=== PATIENT | male | born 1955 | race American Indian/Alaskan Native ===

== ENCOUNTER 2017-08-16 12:08 | Day surgery (SDC) | payer BC ==
[~2017-08-16 12:08] MED LIST: ANCEF/STERILE WATER 2 GM/20 ML 2 GM/20 ML SYRINGE IV NR; MARCAINE 0.25% INFILTRATI ONE; NEOSPORIN GU IR ONE
--- NOTE | 2017-08-16 13:13 | Anesthesia Consultation ---
Anesthesia Consult and Med Hx Date of service: 08/16/17 - Airway Anesthetic Teeth Evaluation: Good ROM Head & Neck: Adequate Mental/Hyoid Distance: Adequate Mallampati Class: Class II Intubation Access Assessment: Probably Good - Pulmonary Exam CTA: Yes - Cardiac Exam Cardiac Exam: RRR - Pre-Operative Health Status ASA Pre-Surgery Classification: ASA2 Proposed Anesthetic Plan: General - Pulmonary Hx Smoking: Yes (2 cigarettes PER DAY for 40 years) Hx Asthma: No Hx Sleep Apnea: No (MILTON PRE SCREEN HIGH RISK) - Cardiovascular System Hx Hypertension: Yes (X 2 MONTHS) Hx Heart Attack/AMI: No - Central Nervous System CVA: No Hx Back Pain: Yes - Gastrointestinal Hx Gastroesophageal Reflux Disease: No - Endocrine Hx Renal Disease: No Hx Liver Disease: No Hx Non-Insulin Dependent Diabetes: No - Other Systems Hx Alcohol Use: Yes (2-3 DRINKS PER DAY) Hx Cancer: No (elevated PSA) - Additional Comments Anesthesia Medical History Comments: NAC
--- NOTE | 2017-08-16 13:14 | Anesthesia Day of Surgery ---
Anesthesia Day of Surgery - Day of Surgery Patient Examined: Yes Patient H&P Reviewed: Yes Patient is NPO: Yes
[2017-08-16] MEDS ORDERED: PEPCID PO NR (14:00)
[2017-08-16] MEDS ORDERED: VERSED IV NR (14:00)
[2017-08-16] MEDS ORDERED: LACTATED RINGERS 1,000 ML IV SCH (14:00)
[2017-08-16] MEDS ORDERED: DIPRIVAN 10 MG/ML IV ONE (14:11)
[2017-08-16] MEDS ORDERED: DILAUDID ONE (14:12)
[2017-08-16] MEDS ORDERED: MARCAINE 0.25% INFILTRATI ONE (14:16)
[2017-08-16] MEDS ORDERED: NEOSPORIN GU IR ONE (14:16)
[2017-08-16] MEDS ORDERED: ZOFRAN IV PRN (14:30)
[2017-08-16] MEDS ORDERED: ANCEF/STERILE WATER 2 GM/20 ML 2 GM/20 ML SYRINGE IV NR (14:30)
[2017-08-16] MEDS ORDERED: XYLOCAINE MPF 2% ONE ×2 (14:46→16:13)
[2017-08-16] MEDS ORDERED: ZEMURON IV ONE (14:46)
[2017-08-16] MEDS ORDERED: DECADRON ONE (14:46)
[2017-08-16] MEDS ORDERED: NEO SYNEPHRINE/NS Syringe(OR USE) IV ONE (14:49)
[2017-08-16] MEDS ORDERED: PERCOCET 5/325 PO PRN (15:00)
[2017-08-16] MEDS ORDERED: ZOFRAN ONE (15:43)
[2017-08-16] MEDS ORDERED: TORADOL ONE (15:43)
[2017-08-16] MEDS ORDERED: LACTATED RINGERS 1,000 ML ONE (15:44)
[2017-08-16] MEDS ORDERED: NEOSTIGMINE ONE (16:06)
[2017-08-16] MEDS ORDERED: ROBINUL ONE (16:06)
--- NOTE | 2017-08-16 16:18 | Post Operative Note ---
Date of procedure: 08/16/17 Pre-op diagnosis: l eft inguinal Post-op diagnosis: same Findings: large direct IH Procedure: LIH Anesthesia: GETA Surgeon: JM ANDRE Estimated blood loss: minimal Pathology: none Condition: stable Disposition: PACU
--- NOTE | 2017-08-16 16:21 | Discharge Summary ---
Short Stay Discharge Plan Activity: other (no straining ) Weight Bearing Status: Full Weight Bearing Diet: low cholesterol Wound: other (ice to wound ) Follow up with: ANDREW HUITRON MD [Primary Care Provider] - 7 Days JM ANDRE MD [Staff Physician] - 10 Days
[2017-08-16] MEDS: MORPHINE IV PRN ×2 (17:00→17:10)
--- NOTE | 2017-08-16 18:31 | Operative Report ---
PREOPERATIVE DIAGNOSIS: Very large progressing painful left inguinal hernia. POSTOPERATIVE DIAGNOSES: 1. Very large progressing painful left inguinal hernia. 2. Large direct inguinal hernia with a large defect. PROCEDURE: Left inguinal hernia repair. SURGEON: Benoit Mullen MD ANESTHESIA: General. FINDINGS: This is a gentleman with large defect that is protruding causing pain and getting larger, now presents for repair. All risks and complications were discussed. DESCRIPTION OF PROCEDURE: The patient brought to the operating room and placed on the operating table. Following induction of anesthesia, placed in the supine position, prepped and draped in the usual sterile fashion. An oblique incision made over the left inguinal area and carried through the skin and superficial fascia. Small vessels were tied with Vicryl or cauterized. This was carried down to the external oblique aponeurosis. The external ring was opened and there was a large bulge protruding from it with very thinning of the external oblique aponeurosis. The cord was isolated from the bulge and this was a large direct hernia through the floor, which was totally weak. This was dissected free and circumferentially off the cord. The ilioinguinal nerve was reflected as part of the cord and isolated with the cord using a Katlyn. At this point, hemostasis was excellent. Circumferential sutures were initially placed after we placed the plug in the defect. The plug was secured, so it would not move. We did not open the sack. The wound was irrigated. The circumferential defect was approximated with a keyhole mesh, interrupted sutures of 2-0 Ethibond. Wound was copiously irrigated throughout the case with antibiotic solution. Superficial fascia was closed after the external oblique aponeurosis was closed with 2-0 Vicryl. The fascia was closed with 3-0 Vicryl, skin with clips. The patient tolerated the procedure well and brought to recovery in stable condition. Minimal blood loss. JOB# [id number] AMY/GEOFF
--- NOTE | 2017-08-16 18:37 | Post Anesthesia Evaluation ---
- Post Anesthesia Evaluation Patient Participated: Yes Airway Patent: Yes Stable Respiratory Function: Yes Temp > 96.8F: Yes Pain Manageable: Yes Adequeate Hydration: Yes Anesthesia Complications: No
[2017-08-16 19:05] VITALS: BP 159/90
== END 2017-08-16 18:45 | disposition home or self-care (01) ==
LOC: OR 12:08
PROVIDERS: ATTEND Urology
DX: K40.90 Unilateral inguinal hernia, without obstruction or gangrene, not specified as recurrent (principal); I10 Essential (primary) hypertension; E78.00 Pure hypercholesterolemia, unspecified; F17.210 Nicotine dependence, cigarettes, uncomplicated; Z79.899 Other long term (current) drug therapy
CPT/HCPCS: 36415; 49505; 84132; C1781; J0690; J1100; J1170; J1885; J2250; J2270; J2370; J2405; J2704; J2710; J7120

== ENCOUNTER 2018-12-05 11:26 | Day surgery (SDC) | payer BC ==
[2018-12-05] MEDS ORDERED: GENTAMICIN 80 MG in NACL 0.9% 100 ML IV SCH (12:18)
[2018-12-05] MEDS ORDERED: GENTAMICIN 400 MG in NACL 0.9% 100 ML IV NR (12:30)
[2018-12-05] MEDS ORDERED: NS IV ONE (12:33)
[2018-12-05] MEDS ORDERED: GENTAMICIN IV ONE (12:33)
[2018-12-05] MEDS ORDERED: NACL 0.9% 1000 ML 1,000 ML IV SCH (13:00)
[2018-12-05] MEDS ORDERED: ANCEF/STERILE WATER 2 GM/20 ML IV NR (13:00)
--- NOTE | 2018-12-05 13:05 | Anesthesia Day of Surgery ---
Anesthesia Day of Surgery - Day of Surgery Patient Examined: Yes Patient H&P Reviewed: Yes Patient is NPO: Yes
--- NOTE | 2018-12-05 13:05 | Anesthesia Consultation ---
Anesthesia Consult and Med Hx Date of service: 12/05/18 - Airway Anesthetic Teeth Evaluation: Good ROM Head & Neck: Adequate Mental/Hyoid Distance: Adequate Mallampati Class: Class II Intubation Access Assessment: Good - Pulmonary Exam CTA: Yes - Cardiac Exam Cardiac Exam: No Murmur - Pre-Operative Health Status ASA Pre-Surgery Classification: ASA2 Proposed Anesthetic Plan: General - Pulmonary Hx Smoking: Yes (2 cigarettes PER DAY for 40 years) Hx Asthma: No Hx Sleep Apnea: No (MILTON PRE SCREEN HIGH RISK) - Cardiovascular System Hx Hypertension: Yes (X 1 YR) Hx Heart Attack/AMI: No - Central Nervous System CVA: No Hx Back Pain: Yes - Gastrointestinal Hx Gastroesophageal Reflux Disease: No - Endocrine Hx Renal Disease: No Hx Liver Disease: No Hx Non-Insulin Dependent Diabetes: No - Other Systems Hx Alcohol Use: Yes (2-3 DRINKS PER DAY) Hx Cancer: No
[2018-12-05] MEDS ORDERED: DIPRIVAN 10 MG/ML IV ONE (13:27)
[2018-12-05] MEDS ORDERED: DILAUDID ONE (13:27)
[2018-12-05] MEDS ORDERED: XYLOCAINE MPF 2% ONE (13:29)
[2018-12-05] MEDS ORDERED: GENTAMICIN/NS 80 MG/100 ML 100 ML IV NR (13:30)
[2018-12-05] MEDS ORDERED: GENTAMICIN ONE (13:59)
[2018-12-05] MEDS ORDERED: VERSED IV NR (14:00)
[2018-12-05] MEDS ORDERED: PEPCID PO NR (14:00)
[2018-12-05] MEDS ORDERED: WATER FOR IRRIG STERILE IR ONE (14:33)
[2018-12-05] MEDS ORDERED: NACL 0.9% 100 ML ONE (14:35)
[2018-12-05 15:02] VITALS: BP 145/65
--- NOTE | 2018-12-05 16:20 | Post Operative Note ---
Date of procedure: 12/05/18 Pre-op diagnosis: inc psa Post-op diagnosis: same Procedure: pus bx cysto Anesthesia: GETA Estimated blood loss: minimal Pathology: list (prostate) Specimen disposition: to lab Condition: stable Disposition: PACU
--- NOTE | 2018-12-05 16:21 | Discharge Summary ---
Short Stay Discharge Plan Activity: other (no straining ) Weight Bearing Status: Full Weight Bearing Diet: low fat, low cholesterol, low salt Special Instructions: other (inc fluids ) Additional Instructions: INCREASE ORAL FLUIDS. AVOID STRAINING. CALL FOR F/U APPT. NOTHING PER RECTUM. Follow up with: ANDREW HUITRON MD [Primary Care Provider] - 7 Days JM ANDRE MD [Staff Physician] - 7 Days Forms: [facility]
--- NOTE | 2018-12-05 16:46 | Operative Report ---
PREOPERATIVE DIAGNOSIS: Increased PSA, suspicious areas ____. POSTOPERATIVE DIAGNOSES: Increased PSA suspicious areas ____. PROCEDURE: Flexible cystoscopy, prostate ultrasound-guided biopsies. SURGEON: Benoit Mullen MD ANESTHESIA: General. FINDINGS: This is a gentleman who has abnormal areas with increased risk and the prostate now presents for repeat prostate biopsy under anesthesia. DESCRIPTION OF PROCEDURE: The patient brought to the operating room and placed on the operating table. Following induction of anesthesia, he was medicated with Ancef and gentamicin, prepped and draped in usual sterile fashion. Flexible cystoscopy showed an open bladder neck. No significant trabeculation. The ultrasound unit was placed. The gland measured about 41 grams. 6 biopsies on the right, 6 on the left were carried out. The patient tolerated the procedure well. No significant complication. He was brought to recovery in stable condition. JOB# [id number] AMY/GEOFF
--- NOTE | 2018-12-06 11:12 | Ultrasound Report ---
ULTRASOUND TRANSRECTAL History: Elevated PSA. Findings: The prostate gland measures 5.6 x 2.9 x 4.9 cm. Prostate volume is estimated at 41.2 cc. The prostate gland appears homogeneous on transrectal ultrasound. No discrete nodule is demonstrated. Impression: Prostate volume measures 41.2 cc.
== END 2018-12-05 16:10 | disposition home or self-care (01) ==
LOC: OR 11:26
PROVIDERS: ATTEND Urology
DX: C61 Malignant neoplasm of prostate (principal); F17.210 Nicotine dependence, cigarettes, uncomplicated; E78.00 Pure hypercholesterolemia, unspecified; I10 Essential (primary) hypertension; Z72.89 Other problems related to lifestyle; Z79.899 Other long term (current) drug therapy; Z98.890 Other specified postprocedural states
CPT/HCPCS: 55700; 76872; 88305; 88344; A4217; J0690; J1170; J1580; J2250; J2704; J7030; 88342

== ENCOUNTER 2018-12-21 08:33 | Outpatient (CLI) | payer BC ==
--- NOTE | 2018-12-21 15:44 | Cat Scan Report ---
CT ABDOMEN AND PELVIS WITHOUT CONTRAST INDICATION: Malignant neoplasm of prostate. COMPARISON: None similar. FINDINGS: Abdomen and pelvis CT performed following oral contrast only. LUNG BASES: Coronary calcifications. Slight nonspecific distal esophageal prominence. Left hemidiaphragm minimally higher than the right. ABDOMEN: Please note that sensitivity to detect small visceral lesions is limited due to the absence of intravenous contrast. An indeterminate 0.7 cm left hepatic hypodensity, axial series 2, image 46. Otherwise grossly unremarkable unenhanced liver, spleen, somewhat contracted gallbladder, adrenals, aorta, IVC and kidneys. Pancreas also grossly unremarkable with a small 4 mm benign-appearing pancreatic head calcification on axial image 86. Few small, predominantly subcentimeter mesenteric and retroperitoneal lymph nodes, though the largest left para-aortic lymph node measuring 1.4 cm contains fat as on axial image 97. Opacified GI tract nonobstructive. Cecum somewhat low lying in the right hemipelvis anteriorly with a normal appendix. Usual colonic stool. Multiple distal descending colon and proximal sigmoid diverticuli. No ascites. Small fat containing umbilical hernia with a transverse neck of 0.8 cm. PELVIS: Remainder rectosigmoid grossly within normal limits. Few small pelvic phleboliths. Approximately 4.3 cm enlarged prostate with prominent seminal vesicles as well. Urinary bladder suboptimally distended and assessed with slight diffuse exaggerated wall thickness. No significant pelvic free fluid or adenopathy. Mild multilevel lower thoracic spine degenerative changes/spurring. Moderate to severe L5-S1 disc narrowing with spurring and mild vacuum phenomenon. Right SI joint degenerative bridging. Right more than left hip degenerative changes as well. Osteopenia not excluded. CONCLUSION: Few small nonspecific retroperitoneal and mesenteric lymph nodes in this patient with prostate carcinoma and various other findings, including diverticulosis and few bony degenerative changes, amongst others, as detailed above. Please correlate. Thank you for the opportunity to participate in this patient's care.
--- NOTE | 2018-12-24 08:52 | Nuclear Medicine Report ---
WHOLE BODY BONE SCAN: HISTORY: Malignant neoplasm of prostate. Recent [employer] level of 5.3 was reported by the patient. COMPARISON: Noncontrast CT of the abdomen and pelvis performed the same day. No previous bone scan at this facility. FINDINGS: After injection of isotope, gamma camera imaging of the bony system was performed. Degenerative uptake is identified in the shoulders, elbows, wrists, thoracolumbar spine and bilateral knees. Uptake is most pronounced overlying the right acromioclavicular joint which is presumably degenerative in nature. There is no radiographic correlation in this area. There is relatively intense uptake along the right side of the T11 or T12 vertebral body. This appears to correlate with degenerative spurring on CT. No focal abnormal uptake suspicious for metastatic disease is appreciated. No suspicious bone lesions are seen on CT. IMPRESSION: No evidence for metastatic disease to the bones. Degenerative changes as outlined above. The most affected areas appear to be the right acromioclavicular joint and T11-12 disc space.
== END 2018-12-21 08:34 | disposition home or self-care (01) ==
LOC: NM 08:33
PROVIDERS: ATTEND Urology
DX: K57.90 Diverticulosis of intestine, part unspecified, without perforation or abscess without bleeding (principal); M16.12 Unilateral primary osteoarthritis, left hip; M48.07 Spinal stenosis, lumbosacral region; C61 Malignant neoplasm of prostate; E78.00 Pure hypercholesterolemia, unspecified; I10 Essential (primary) hypertension
CPT/HCPCS: 74176; 78306; A9503